=== PATIENT | female | born 1960 | race Caucasian/White ===

== ENCOUNTER 2022-10-19 09:04 | Emergency (ER) | payer MEDICAID | END 2022-10-19 10:00 | disposition home or self-care (01) | LOC: CC.ED 09:04 | DX: S93.402A Sprain of unspecified ligament of left ankle, initial encounter (principal); X50.0XXA Overexertion from strenuous movement or load, initial encounter; Z79.899 Other long term (current) drug therapy | CPT/HCPCS: 73610-LT; 99283 ==

== ENCOUNTER 2023-07-13 11:08 | Inpatient (IN) | payer MEDICAID ==
[2023-07-13 12:13] LABS: BASOPHILS ABSOLUTE AUTO 0.01 10^3/uL (0.00-0.50); BASOPHILS PERCENT AUTO 0.2 % (0-1); EOSINOPHILS ABSOLUTE AUTO 0.02 10^3/uL (0.00-1.50); EOSINOPHILS PERCENT AUTO 0.4 % (0-6); HEMATOCRIT 42.1 % (37.0-47.0); HEMOGLOBIN 14.2 g/dL (12.0-16.0); IMMATURE GRAN ABSOLUTE AUTO 0.01 10^3/uL (0.00-0.49); IMMATURE GRAN PERCENT AUTO 0.2 % (0.0-4.9); LYMPHOCYTES ABSOLUTE AUTO 0.74 10^3/uL (0.60-5.00); LYMPHOCYTES PERCENT AUTO 13.4 % (24-44); MEAN CORPUSCULAR HEMOGLOBIN 32.3 pg (27.0-32.0); MEAN CORPUSCULAR HGB CONC 33.7 g/dL (32.0-36.0); MEAN CORPUSCULAR VOLUME 95.9 fL (83.0-97.0); MONOCYTES ABSOLUTE AUTO 0.52 10^3/uL (0.00-1.50); MONOCYTES PERCENT AUTO 9.4 % (0-10); NEUTROPHILS ABSOLUTE AUTO 4.24 x10^3/uL (1.80-8.00); NEUTROPHILS PERCENT AUTO 76.4 % (41-71); PLATELET COUNT,PLT 225 10^3/uL (150-400); RED BLOOD CELL COUNT 4.39 x10^6/uL (4.00-5.50); WHITE BLOOD CELL COUNT,WBC 5.5 10^3/uL (4.0-11.0)
[2023-07-13 12:22] LABS: BLOOD UREA NITROGEN,BUN 12 mg/dL (7-18); CALCIUM 9.6 mg/dL (8.4-10.1); CARBON DIOXIDE,CO2 33 mmol/L (21-32); CHLORIDE,CL 94 mEq/L (98-106); CREATININE 0.8 mg/dL (0.6-1.0); GLUCOSE RANDOM 104 mg/dL (75-99); POTASSIUM,K 4.1 mEq/L (3.5-5.0); SODIUM,NA 135 mEq/L (136-145)
[2023-07-13 12:26] LABS: ESTIMATED GFR 83 mL/min (>=60)
[2023-07-13] MEDS ORDERED: Polyethylene Glycol 3350 Powder 17 GM Packet PO PRN (13:47)
[2023-07-13] MEDS ORDERED: Ondansetron 4 MG/2 ML SDV IV PRN (13:47)
[2023-07-13] MEDS ORDERED: Docusate Sodium 100 MG Cap PO PRN (13:47)
[2023-07-13] MEDS ORDERED: Ondansetron 4 MG Tab.DIS PO PRN (13:47)
[2023-07-13] MEDS ORDERED: methylPREDNISolone Sodium Succinate 40 MG/1 ML SDV IVPUSH ONE (14:15)
[2023-07-13] MEDS: Albuterol/Ipratropium 3.0-0.5 MG/3 ML Neb Soln NEB PRN (14:59)
[2023-07-13] MEDS: Acetaminophen 325 MG Tab PO PRN (17:02)
[2023-07-14] MEDS: Acetaminophen 325 MG Tab PO PRN ×3 (04:48→20:30)
[2023-07-14] MEDS: Pantoprazole 40 MG Tab.CR PO SCH (06:38)
[2023-07-14] MEDS: Albuterol/Ipratropium 3.0-0.5 MG/3 ML Neb Soln NEB PRN ×4 (07:56→21:37)
[2023-07-14 07:57] LABS: CALCIUM 9.1 mg/dL (8.4-10.1); CREATININE 0.7 mg/dL (0.6-1.0); EST CRCL DRUG DOSING (CG) 72.45 mL/min; MAGNESIUM 1.6 mg/dL (1.8-2.4); POTASSIUM,K 3.3 mEq/L (3.5-5.0)
[2023-07-14] MEDS: Hydrochlorothiazide 25 MG Tab PO SCH (08:10)
[2023-07-14] MEDS: methylPREDNISolone Sodium Succinate 40 MG/1 ML SDV IVPUSH SCH ×2 (08:10→20:26)
[2023-07-14 08:11] LABS: BASOPHILS ABSOLUTE AUTO 0.01 10^3/uL (0.00-0.50); BASOPHILS PERCENT AUTO 0.2 % (0-1); HEMATOCRIT 37.5 % (37.0-47.0); HEMOGLOBIN 12.8 g/dL (12.0-16.0); IMMATURE GRAN ABSOLUTE AUTO 0.01 10^3/uL (0.00-0.49); IMMATURE GRAN PERCENT AUTO 0.2 % (0.0-4.9); LYMPHOCYTES ABSOLUTE AUTO 1.12 10^3/uL (0.60-5.00); LYMPHOCYTES PERCENT AUTO 21.3 % (24-44); MEAN CORPUSCULAR HEMOGLOBIN 32.3 pg (27.0-32.0); MEAN CORPUSCULAR HGB CONC 34.1 g/dL (32.0-36.0); MEAN CORPUSCULAR VOLUME 94.7 fL (83.0-97.0); MONOCYTES ABSOLUTE AUTO 0.68 10^3/uL (0.00-1.50); MONOCYTES PERCENT AUTO 12.9 % (0-10); NEUTROPHILS ABSOLUTE AUTO 3.45 x10^3/uL (1.80-8.00); NEUTROPHILS PERCENT AUTO 65.4 % (41-71); PLATELET COUNT,PLT 224 10^3/uL (150-400); RED BLOOD CELL COUNT 3.96 x10^6/uL (4.00-5.50); WHITE BLOOD CELL COUNT,WBC 5.3 10^3/uL (4.0-11.0)
[2023-07-14] MEDS ORDERED: Potassium Chloride 10 MEQ Tab.ER PO ONE ×2 (10:15→10:31)
[2023-07-14] MEDS ORDERED: Potassium Chloride 10 MEQ Tab.ER PO SCH (10:30)
[2023-07-14] MEDS: Magnesium Chloride 64 MG Tab.ER PO SCH ×2 (12:07→17:17)
[2023-07-14] MEDS ORDERED: Magnesium Chloride 64 MG Tab.ER PO SCH (17:30)
[2023-07-15] MEDS: Pantoprazole 40 MG Tab.CR PO SCH (06:53)
[2023-07-15] MEDS: methylPREDNISolone Sodium Succinate 40 MG/1 ML SDV IVPUSH SCH ×2 (07:58→19:13)
[2023-07-15] MEDS: Magnesium Chloride 64 MG Tab.ER PO SCH ×2 (07:58→17:22)
[2023-07-15] MEDS: Hydrochlorothiazide 25 MG Tab PO SCH (07:58)
[2023-07-15] MEDS: Albuterol/Ipratropium 3.0-0.5 MG/3 ML Neb Soln NEB PRN ×2 (08:00→12:37)
[2023-07-15] MEDS: Acetaminophen 325 MG Tab PO PRN ×2 (11:22→20:09)
[2023-07-15 11:42] LABS: BASOPHILS ABSOLUTE AUTO 0.01 10^3/uL (0.00-0.50); BASOPHILS PERCENT AUTO 0.2 % (0-1); HEMATOCRIT 39.3 % (37.0-47.0); HEMOGLOBIN 13.3 g/dL (12.0-16.0); IMMATURE GRAN ABSOLUTE AUTO 0.01 10^3/uL (0.00-0.49); IMMATURE GRAN PERCENT AUTO 0.2 % (0.0-4.9); LYMPHOCYTES ABSOLUTE AUTO 0.44 10^3/uL (0.60-5.00); LYMPHOCYTES PERCENT AUTO 8.1 % (24-44); MEAN CORPUSCULAR HEMOGLOBIN 32.4 pg (27.0-32.0); MEAN CORPUSCULAR HGB CONC 33.8 g/dL (32.0-36.0); MEAN CORPUSCULAR VOLUME 95.6 fL (83.0-97.0); MONOCYTES ABSOLUTE AUTO 0.12 10^3/uL (0.00-1.50); MONOCYTES PERCENT AUTO 2.2 % (0-10); NEUTROPHILS ABSOLUTE AUTO 4.85 x10^3/uL (1.80-8.00); NEUTROPHILS PERCENT AUTO 89.3 % (41-71); PLATELET COUNT,PLT 245 10^3/uL (150-400); RED BLOOD CELL COUNT 4.11 x10^6/uL (4.00-5.50); WHITE BLOOD CELL COUNT,WBC 5.4 10^3/uL (4.0-11.0)
[2023-07-15 11:49] LABS: CALCIUM 9.7 mg/dL (8.4-10.1); CREATININE 0.8 mg/dL (0.6-1.0); EST CRCL DRUG DOSING (CG) 63.39 mL/min; MAGNESIUM 1.6 mg/dL (1.8-2.4); POTASSIUM,K 3.8 mEq/L (3.5-5.0)
[2023-07-16] MEDS: Pantoprazole 40 MG Tab.CR PO SCH (07:00)
[2023-07-16] MEDS: Hydrochlorothiazide 25 MG Tab PO SCH (08:53)
[2023-07-16] MEDS: Magnesium Chloride 64 MG Tab.ER PO SCH ×3 (08:53→16:37)
[2023-07-16] MEDS: methylPREDNISolone Sodium Succinate 40 MG/1 ML SDV IVPUSH SCH ×2 (08:53→19:35)
[2023-07-17] MEDS: Pantoprazole 40 MG Tab.CR PO SCH (06:47)
[2023-07-17 07:43] LABS: BASOPHILS ABSOLUTE AUTO 0.01 10^3/uL (0.00-0.50); BASOPHILS PERCENT AUTO 0.2 % (0-1); HEMATOCRIT 39.8 % (37.0-47.0); HEMOGLOBIN 13.7 g/dL (12.0-16.0); IMMATURE GRAN ABSOLUTE AUTO 0.01 10^3/uL (0.00-0.49); IMMATURE GRAN PERCENT AUTO 0.2 % (0.0-4.9); LYMPHOCYTES ABSOLUTE AUTO 1.36 10^3/uL (0.60-5.00); LYMPHOCYTES PERCENT AUTO 24.6 % (24-44); MEAN CORPUSCULAR HEMOGLOBIN 32.5 pg (27.0-32.0); MEAN CORPUSCULAR HGB CONC 34.4 g/dL (32.0-36.0); MEAN CORPUSCULAR VOLUME 94.3 fL (83.0-97.0); MONOCYTES ABSOLUTE AUTO 0.54 10^3/uL (0.00-1.50); MONOCYTES PERCENT AUTO 9.8 % (0-10); NEUTROPHILS PERCENT AUTO 65.2 % (41-71); PLATELET COUNT,PLT 311 10^3/uL (150-400); RED BLOOD CELL COUNT 4.22 x10^6/uL (4.00-5.50); WHITE BLOOD CELL COUNT,WBC 5.5 10^3/uL (4.0-11.0)
[2023-07-17] MEDS: Magnesium Chloride 64 MG Tab.ER PO SCH ×2 (07:53→18:35)
[2023-07-17] MEDS: Hydrochlorothiazide 25 MG Tab PO SCH (07:53)
[2023-07-17] MEDS: methylPREDNISolone Sodium Succinate 40 MG/1 ML SDV IVPUSH SCH ×2 (07:53→20:37)
[2023-07-17 08:09] LABS: CALCIUM 9.4 mg/dL (8.4-10.1); CREATININE 0.8 mg/dL (0.6-1.0); EST CRCL DRUG DOSING (CG) 63.39 mL/min; POTASSIUM,K 4.3 mEq/L (3.5-5.0)
[2023-07-17] MEDS ORDERED: guaiFENesin/Dextromethorphan 100-10 MG/5 ML Soln 5 ML Cup PO PRN (20:22)
[2023-07-18] MEDS: Magnesium Chloride 64 MG Tab.ER PO SCH (07:54)
[2023-07-18] MEDS: methylPREDNISolone Sodium Succinate 40 MG/1 ML SDV IVPUSH SCH (07:54)
[2023-07-18] MEDS: Hydrochlorothiazide 25 MG Tab PO SCH (07:54)
[2023-07-18] MEDS: Pantoprazole 40 MG Tab.CR PO SCH (07:54)
== END 2023-07-18 15:20 | disposition home or self-care (01) | DRG 195 ==
LOC: CC.FCMC 11:08 → CC.MS 11:08 → UNDOADMIN 12:59 → CC.MS 12:59
PROVIDERS: ADMIT Nurse Practitioner; ATTEND Nurse Practitioner
DX: J10.1 Influenza due to other identified influenza virus with other respiratory manifestations (principal); R09.02 Hypoxemia; F17.210 Nicotine dependence, cigarettes, uncomplicated; K21.9 Gastro-esophageal reflux disease without esophagitis; Z66 Do not resuscitate; E87.6 Hypokalemia; E83.42 Hypomagnesemia; Z79.899 Other long term (current) drug therapy; Z11.52 Encounter for screening for COVID-19; Z98.51 Tubal ligation status; Z98.890 Other specified postprocedural states
CPT/HCPCS: 36415; 71046; 80048; 83735; 85025; 86140; 87804; 87807; 94640; 99223; 99232; 99233; 99238; A9270-GY; J2405; J2920; J7620-GY; U0002

== ENCOUNTER 2025-05-14 08:39 | Day surgery (SDC) | payer MEDICARE ==
[2025-05-14] MEDS: Lactated Ringers 1,000 ML IV SCH (09:15)
[2025-05-14] MEDS ORDERED: Midazolam 1 MG/ML 2 ML SDV ONE ×2 (10:32)
[2025-05-14] MEDS ORDERED: fentaNYL 50 MCG/ML SDV ONE ×2 (10:32)
[2025-05-14] MEDS ORDERED: Ketamine 200 MG/20 ML MDV ONE (10:32)
[2025-05-14] MEDS ORDERED: Propofol 200 MG/20 ML SDV ONE ×3 (10:32)
== END 2025-05-14 13:35 | disposition home or self-care (01) ==
LOC: CC.SDS 08:39
PROVIDERS: ATTEND Surgery
DX: Z12.11 Encounter for screening for malignant neoplasm of colon (principal); K63.5 Polyp of colon; I10 Essential (primary) hypertension; F17.210 Nicotine dependence, cigarettes, uncomplicated; Z79.899 Other long term (current) drug therapy
CPT/HCPCS: 00811; 88305; J2250; J2704; J3010; J3490; J7120